=== PATIENT | male | born 1995 | race Hispanic/Latino ===

== ENCOUNTER 2018-03-01 17:39 | Emergency (ER) | payer OTHER ==
[2018-03-01 17:48] VITALS: BP 112/70; PULSE 70; RESP 16; TEMP 98.9; O2SAT 98
--- NOTE | 2018-03-01 18:24 | ED PDOC ---
Lower Extremity Pain/Injury Time Seen by Provider: 03/01/18 17:54 Chief Complaint (Nursing): Lower Extremity Problem/Injury Chief Complaint (Provider): Lower Extremity Problem/Injury History Per: Patient History/Exam Limitations: no limitations Onset/Duration Of Symptoms: Hrs Current Symptoms Are (Timing): Still Present Additional Complaint(s): 22 y/o male with no significant PMHx presents to the ED complaining of right ankle pain. 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 Patient states he twisted his ankle and worsens when weight bearing. PMD: In [place] Past Medical History Reviewed: Historical Data, Nursing Documentation, Vital Signs Vital Signs: Last Vital Signs Temp 98.9 F 03/01/18 17:45 Pulse 70 03/01/18 17:45 Resp 16 03/01/18 17:45 BP 112/70 03/01/18 17:45 Pulse Ox 98 03/01/18 17:45 - Medical History PMH: No Chronic Diseases - Surgical History Surgical History: No Surg Hx - Family History Family History: States: Unknown Family Hx - Allergies Allergies/Adverse Reactions: Allergies Allergy/AdvReac Type Severity Reaction Status Date / Time No Known Allergies Allergy Verified 03/01/18 17:45 Review of Systems ROS Statement: Except As Marked, All Systems Reviewed And Found Negative Musculoskeletal: Positive for: Foot Pain (Right ankle pain) Physical Exam - Reviewed Nursing Documentation Reviewed: Yes Vital Signs Reviewed: Yes - Physical Exam Appears: Positive for: Non-toxic, No Acute Distress Head Exam: Positive for: ATRAUMATIC Skin: Positive for: Normal Color, Warm Eye Exam: Positive for: Normal appearance Neck: Positive for: Normal Cardiovascular/Chest: Negative for: Bradycardia, Tachycardia Respiratory: Negative for: Accessory Muscle Use, Respiratory Distress Extremity: Positive for: Normal ROM, Tenderness (to right lateral malleolus). Negative for: Deformity Neurologic/Psych: Positive for: Alert, Oriented. Negative for: Motor/Sensory Deficits - ECG O2 Sat by Pulse Oximetry: 98 (RA) Pulse Ox Interpretation: Normal Medical Decision Making Medical Decision Making: Time: 1814 Plan: -- Motrin 600 mg PO -- Ankle Right 3 Views Time: 1855 ANKLE XR RESULTS IMPRESSION: No demonstrated fracture or dislocation. Scribe Attestation: Documented by Christal Baker, acting as a scribe for Susan Arevalo PA-C. Provider Scribe Attestation: All medical record entries made by the Scribe were at my direction and personally dictated by me. I have reviewed the chart and agree that the record accurately reflects my personal performance of the history, physical exam, medical decision making, and the department course for this patient. I have also personally directed, reviewed, and agree with the discharge instructions and disposition. Disposition - Clinical Impression Clinical Impression: Ankle sprain and strain - Patient ED Disposition Is Patient to be Admitted: No Counseled Patient/Family Regarding: Diagnosis, Need For Followup, Rx Given - Disposition Referrals: Podiatry Clinic [Outside] Disposition: Routine/Home Disposition Time: 19:03 Condition: STABLE Instructions: Ankle Sprain Forms: [employer] (Bengali)
--- NOTE | 2018-03-01 18:30 | RAD ---
Date of service: 03/01/2018 PROCEDURE: Right Ankle Radiographs. HISTORY: twisted, pain right lateral malleolous COMPARISON: None FINDINGS: BONES: No acute fracture. JOINTS: Ankle mortise maintained. Talar dome intact SOFT TISSUES: Normal. OTHER FINDINGS: None. IMPRESSION: No demonstrated fracture or dislocation.
== END 2018-03-01 19:09 | disposition home or self-care (01) ==
LOC: H.ER 17:39
DX: S93.401A Sprain of unspecified ligament of right ankle, initial encounter (principal); X50.9XXA Other and unspecified overexertion or strenuous movements or postures, initial encounter; Y99.0 Civilian activity done for income or pay

== ENCOUNTER 2018-03-22 17:07 | Emergency (ER) | payer OTHER ==
[2018-03-22 17:24] VITALS: BP 111/64; PULSE 74; RESP 16; TEMP 98; O2SAT 100
--- NOTE | 2018-03-22 17:58 | ED PDOC ---
HPI: General Adult Time Seen by Provider: 03/22/18 17:38 Chief Complaint (Nursing): Flu-like Symptoms History Per: Patient Onset/Duration Of Symptoms: Days (4) Current Symptoms Are (Timing): Still Present Severity: Mild Pain Scale Rating Of: 2 Additional Complaint(s): Sore throat, subjective fever and nonproductive cough x 4 days. denies SOB Past Medical History Vital Signs: Last Vital Signs Temp 98.0 F 03/22/18 17:24 Pulse 74 03/22/18 17:24 Resp 16 03/22/18 17:24 BP 111/64 03/22/18 17:24 Pulse Ox 100 03/22/18 17:24 - Medical History PMH: HIV - Family History Family History: States: Unknown Family Hx - Home Medications Home Medications: Ambulatory Orders Medication Instructions Recorded Azithromycin [Zithromax] 250 mg PO DAILY #6 tab 03/22/18 - Allergies Allergies/Adverse Reactions: Allergies Allergy/AdvReac Type Severity Reaction Status Date / Time No Known Allergies Allergy Verified 03/22/18 17:24 Review of Systems Constitutional: Negative for: Fever ENT: Positive for: Throat Pain Respiratory: Positive for: Cough Physical Exam - Physical Exam Appears: Positive for: Non-toxic, No Acute Distress Head Exam: Positive for: ATRAUMATIC, NORMAL INSPECTION, NORMOCEPHALIC Skin: Positive for: Normal Color, Warm, DRY ENT: Positive for: Pharyngeal Erythema Neck: Positive for: Normal, Painless ROM Cardiovascular/Chest: Positive for: Regular Rate, Rhythm Respiratory: Positive for: CNT, Normal Breath Sounds - ECG O2 Sat by Pulse Oximetry: 100 Disposition - Clinical Impression Clinical Impression: Upper respiratory infection - Patient ED Disposition Is Patient to be Admitted: No Counseled Patient/Family Regarding: Studies Performed, Diagnosis, Need For Followup, Rx Given - Disposition Referrals: [facility] [Outside] Disposition: Routine/Home Disposition Time: 17:57 Condition: FAIR Prescriptions: Azithromycin [Zithromax] 250 mg PO DAILY #6 tab Instructions: Bacterial Upper Respiratory Infection, Adult
== END 2018-03-22 18:46 | disposition home or self-care (01) ==
LOC: H.ER 17:07
DX: J06.9 Acute upper respiratory infection, unspecified (principal)